=== PATIENT | female | born 1970 | race African-American/Black ===

== ENCOUNTER → 2025-08-04 | Day surgery (SDC) | payer BC ==
[~2025-08-04] MED LIST: EPHEDRINE SULFATE INJ 50 MG/ML VIAL ONE; LIDOCAINE HCL 2% LOCAL INJ 5 ML SDV VIAL INJ ONE; LOSARTAN POTASS25 MG PO; MIDAZOLAM HCL 2 MG/2 ML VIAL ONE; PROPOFOL IV EMULSION 10 MG/ML 20 ML VIAL ONE; SIMVASTATIN40 MG PO
[2025-08-04] MEDS: LACTATED RINGER'S 1,000 ML ONE (06:43)
[2025-08-04 08:05] VITALS: BP 116/67; PULSE 86; RESP 18; O2SAT 98
== END | disposition home or self-care (01) ==
LOC: OR 05:55
PROVIDERS: ATTEND Internal Medicine Gastroenterology
DX: Z12.11 Encounter for screening for malignant neoplasm of colon (principal); D12.3 Benign neoplasm of transverse colon; K64.8 Other hemorrhoids; I10 Essential (primary) hypertension; E78.5 Hyperlipidemia, unspecified; Z01.818 Encounter for other preprocedural examination; Z79.899 Other long term (current) drug therapy; Z68.31 Body mass index [BMI] 31.0-31.9, adult; Z80.0 Family history of malignant neoplasm of digestive organs
CPT/HCPCS: 45384; 93005; J2003; J2250; J2704; J7121; 45381